=== PATIENT | female | born 1980 | race Caucasian/White ===

== ENCOUNTER 2024-09-26 12:45 | Emergency (ER) | payer SELFPAY ==
[~2024-09-26] VITALS: Ht 157.5 cm; Wt 77.1 kg
[2024-09-26] MEDS ORDERED: SODIUM CHLORIDE FLUSH 10 ML SYR IV PRN (13:15)
[2024-09-26 13:20] LABS: BASOPHILS % 0.4 % (0.0-1.0); EOSINOPHILS % 0.8 % (0.0-6.0); LYMPHOCYTES % 24.7 % (18.0-39.1); MONOCYTES % 8.2 % (4.4-11.3); NEUTROPHILS % 65.6 % (38.7-80.0); RED CELL DISTRIBUTION WIDTH 12.3 % (11.7-14.4)
[2024-09-26 13:37] LABS: EST GLOMERULAR FILTRATION RATE 103.0 ML/MIN (>=60)
[2024-09-26 17:24] VITALS: BP 121/89; PULSE 71; RESP 16; TEMP 98.3
[2024-09-26 17:33] VITALS: PULSE 78; RESP 17; TEMP 98.2; O2SAT 98
== END 2024-09-26 17:26 | disposition home or self-care (01) ==
LOC: ER 15:25
DX: R07.9 Chest pain, unspecified (principal); R00.2 Palpitations; F90.9 Attention-deficit hyperactivity disorder, unspecified type; R06.02 Shortness of breath; Z86.718 Personal history of other venous thrombosis and embolism; Z88.8 Allergy status to other drugs, medicaments and biological substances; Z82.49 Family history of ischemic heart disease and other diseases of the circulatory system
CPT/HCPCS: 36415; 71045; 80053; 84484; 85025; 93005; 99284